=== PATIENT | male | born 1970 | race Caucasian/White ===

== ENCOUNTER 2019-07-08 06:53 | Inpatient (IN) ==
[2019-07-08] MEDS ORDERED: *HR* Propofol 200 MG/20 ML VIAL IVP ONE (07:09)
[2019-07-08] MEDS ORDERED: *HR* FentaNYL (PF) 100 MCG/2 ML VIAL ONE (07:09)
[2019-07-08] MEDS ORDERED: *HR* Midazolam HCl 2 MG/2 ML VIAL ONE ×2 (07:09→07:53)
[2019-07-08] MEDS ORDERED: Ethanol\\Acetic Acid\\Na Ace\\Ben 1,000 ML IRRIG.SOLN IR ONE (07:09)
[2019-07-08] MEDS ORDERED: Lidocaine -MPF 2% 2 ML VIAL ONE (07:11)
[2019-07-08] MEDS ORDERED: Ropivacaine/PF 0.5% 30 ML VIAL ONE (07:21)
[2019-07-08] MEDS ORDERED: CeFAZolin Syr 2,000MG/20 ML 2,000 MG/20 ML SYRINGE IVPB ONE (07:26)
[2019-07-08] MEDS ORDERED: *HR* Promethazine 25 MG/ML VIAL IVP PRN (07:27)
[2019-07-08] MEDS ORDERED: *HR* Meperidine 25 MG/ML SYRINGE IVP PRN (07:27)
[2019-07-08] MEDS ORDERED: Acetaminophen IV 1,000 MG/100 ML INFUS..BTL IVPB ONE (07:27)
[2019-07-08] MEDS ORDERED: *HR* HYDROmorphone (PF) 1 MG/ML SYRINGE IVP PRN (07:27)
[2019-07-08] MEDS ORDERED: *HR* FentaNYL (PF) 100 MCG/2 ML VIAL IVP PRN (07:27)
[2019-07-08] MEDS ORDERED: *HR* OxyCODONE Immed Rel 5 MG TABLET PO PRN (07:27)
[2019-07-08] MEDS ORDERED: *HR* Midazolam HCl 2 MG/2 ML VIAL IVP PRN (07:27)
[2019-07-08] MEDS ORDERED: Ringers Solution, Lactated 1,000 ML IVC SCH (07:30)
[2019-07-08] MEDS ORDERED: Ondansetron 4 MG/2 ML VIAL ONE (08:41)
[2019-07-08] MEDS ORDERED: Dexamethasone 4 MG/ML VIAL ONE (08:41)
[2019-07-08] MEDS ORDERED: Ketorolac 30 MG/ML VIAL ONE (08:53)
[2019-07-08 10:28] LABS: Hemoglobin 15.1 g/dL (12.9-16.9)
[2019-07-08] MEDS ORDERED: *HR* Enoxaparin 30 MG/0.3 ML SYRINGE SQ SCH (15:00)
[2019-07-08 16:09] VITALS: BP 134/79
== END 2019-07-08 18:08 | disposition home or self-care (01) | DRG 483 ==
LOC: SAMDAY 06:53 → 3NENU 10:51
PROVIDERS: ADMIT Orthopaedic Surgery; ATTEND Orthopaedic Surgery